=== PATIENT | male | born 1985 | race Caucasian/White ===

== ENCOUNTER 2017-03-16 16:41 | Emergency (ER) | payer OTHER ==
[~2017-03-16] VITALS: Ht 180.3 cm; Wt 79.5 kg
[~2017-03-16 16:41] MED LIST: XANAX 0.5MG0.5 MG PO
[2017-03-16 16:42] VITALS: TEMP 99.5
[2017-03-16] MEDS ORDERED: CELEXA 20MG20 MG/TAB PO (17:11)
[2017-03-16] MEDS ORDERED: COPAXONE 20M20 MG/M1 SQ (17:13)
[2017-03-16 17:40] LABS: BASO # 0.1 (0.0-0.2); BASO % 0.5 % (0.0-2.0); EOS # 0.1 (0.0-0.7); EOS % 1.1 % (0-4.0); GRAN # 7.5 (1.4-6.5); GRAN % 72.1 % (42.2-75.2); HEMATOCRIT 47.4 % (42.0-52.0); HEMOGLOBIN 15.9 g/dl (13.5-18.0); LYMPH # 1.4 (1.2-3.4); MEAN CELL VOLUME 89 fl (80.0-100.0); MEAN CORPUSCULAR HEMOGLOBIN 30 pg (27.0-31.0); MEAN CORPUSCULAR HGB CONC 34 g/dl (33.0-37.0); MEAN PLATELET VOLUME 9.3 fl (7.4-10.4); MONO # 1.3 (0.1-0.6); MONO % 12.1 % (1.7-9.3); PLATELET COUNT 245 K/mm3 (130-400); RED BLOOD COUNT 5.32 M/mm3 (4.20-5.60); REDCELL DISTRIBUTION WIDTH-CV 13.2 % (11.5-14.5); WHITE BLOOD COUNT 10.4 K/mm3 (4.8-10.8)
[2017-03-16] MEDS ORDERED: ATIVAN 0.50.5 MG/TAB PO (17:42)
[2017-03-16 17:53] LABS: ADJUSTED CALCIUM 8.5 mg/dL (8.4-10.2); ALBUMIN 4.6 gm/dL (3.5-5.0); BILIRUBIN,TOTAL 0.5 mg/dL (0.0-1.0); C-REACTIVE PROTEIN 0.6 mg/dL (0.0-0.9); CREATININE, serum 1.06 mg/dL (0.66-1.25); MAGNESIUM 2.2 mg/dL (1.6-2.3); PHOSPHOROUS 4.2 mg/dL (2.5-4.5); POTASSIUM 4.1 mmol/L (3.4-5.0)
[2017-03-16 18:04] LABS: ERYTHROCYTE SEDIMENTATION RATE 2 mm/hr (0-15)
[2017-03-16] MEDS ORDERED: PREDNISONE10 MG PO (18:28)
[2017-03-16 18:55] VITALS: BP 123/84; PULSE 77
== END 2017-03-16 18:57 | disposition home or self-care (01) ==
LOC: COL.ER 16:41
PROVIDERS: Emergency Medicine
DX: G35 Multiple sclerosis (principal)
CPT/HCPCS: J1170; J7030; J7512

== ENCOUNTER → 2017-05-12 | Outpatient (CLI) | payer OTHER ==
[~2017-05-12] MED LIST changes: +ATIVAN 0.50.5 MG/TAB PO; +CELEXA 20MG20 MG/TAB PO; +COPAXONE 20M20 MG/M1 SQ; +PREDNISONE10 MG PO
== END ==
LOC: COL.RAD 08:10
DX: G35 Multiple sclerosis (principal); R39.11 Hesitancy of micturition
CPT/HCPCS: A9585

== ENCOUNTER 2017-11-21 10:15 | Emergency (ER) | payer OTHER ==
[~2017-11-21] VITALS: Ht 180.3 cm; Wt 81.8 kg
[2017-11-21 10:27] VITALS: TEMP 98.7
[2017-11-21] MEDS ORDERED: ACIPHEX20 MG PO (12:08)
[2017-11-21] MEDS ORDERED: ADVIL200 MG PO (12:09)
[2017-11-21 12:12] LABS: BASO # 0.1 (0.0-0.2); BASO % 0.5 % (0.0-2.0); EOS # 0.2 (0.0-0.7); EOS % 1.9 % (0-4.0); GRAN # 6.2 (1.4-6.5); GRAN % 67.9 % (42.2-75.2); HEMATOCRIT 47.2 % (42.0-52.0); HEMOGLOBIN 15.5 g/dl (13.5-18.0); LYMPH # 1.8 (1.2-3.4); LYMPH % 19.7 % (20.0-51.0); MEAN CELL VOLUME 91 fl (80.0-100.0); MEAN CORPUSCULAR HEMOGLOBIN 30 pg (27.0-31.0); MEAN CORPUSCULAR HGB CONC 33 g/dl (33.0-37.0); MEAN PLATELET VOLUME 9.8 fl (7.4-10.4); MONO # 0.8 (0.1-0.6); MONO % 9.1 % (1.7-9.3); PLATELET COUNT 271 K/mm3 (130-400); REDCELL DISTRIBUTION WIDTH-CV 12.7 % (11.5-14.5)
[2017-11-21 12:57] LABS: ALANINE AMINOTRANSFERASE 38 U/L (21-72); ALBUMIN 4.4 gm/dL (3.5-5.0); ALKALINE PHOSPHATASE 55 U/L (50-136); ANION GAP 10 mmol/L (7-16); AST,SGOT 22 U/L (15-37); BILIRUBIN,TOTAL 0.5 mg/dL (0.0-1.0); BLOOD UREA NITROGEN 15 mg/dL (9-20); CALCIUM 8.6 mg/dL (8.4-10.2); CARBON DIOXIDE 26 mmol/L (22-30); CHLORIDE 104 mmol/L (98-107); CREATININE, serum 0.83 mg/dL (0.66-1.25); GLUCOSE 100 mg/dL (74-106); LIPASE 100 U/L (23-300); POTASSIUM 4.1 mmol/L (3.4-5.0); SODIUM 141 mmol/L (137-145); TOTAL PROTEIN 7.2 gm/dL (6.4-8.2)
[2017-11-21 12:59] LABS: C-REACTIVE PROTEIN < 0.5 mg/dL (0.0-0.9)
[2017-11-21 13:07] LABS: COLLECTION METHOD CLEAN CATCH
[2017-11-21 13:13] LABS: PH 7 (5-8); SQUAMOUS EPITHELIAL None Seen /hpf; URINE APPEARANCE Clear; URINE BACTERIA None Seen /hpf; URINE BILIRUBIN Negative (NEGATIVE); URINE BLOOD Negative (NEGATIVE); URINE COLOR Straw; URINE GLUCOSE Negative (NEGATIVE); URINE KETONE Negative (NEGATIVE); URINE LEUKOCYTE ESTERASE Negative (NEGATIVE); URINE NITRATE Negative (NEGATIVE); URINE PROTEIN(semi-quant) Negative (NEGATIVE); URINE RBC None Seen /hpf; URINE UROBILINOGEN Negative (NEGATIVE)
[2017-11-21] MEDS ORDERED: PREDNISONE20 MG PO (14:09)
[2017-11-21 14:14] VITALS: BP 122/91; PULSE 60
== END 2017-11-21 14:19 | disposition home or self-care (01) ==
LOC: COL.ER 10:15
PROVIDERS: Emergency Medicine; Physician Assistant
DX: R10.9 Unspecified abdominal pain (principal); F17.210 Nicotine dependence, cigarettes, uncomplicated; F12.90 Cannabis use, unspecified, uncomplicated
CPT/HCPCS: J7030

== ENCOUNTER 2018-02-28 08:57 | Emergency (ER) | payer OTHER ==
[~2018-02-28] VITALS: Ht 180.3 cm; Wt 86.4 kg
[~2018-02-28 08:57] MED LIST changes: +ACIPHEX20 MG PO; +ADVIL200 MG PO; +PREDNISONE20 MG PO
[2018-02-28 09:03] VITALS: TEMP 98.6
[2018-02-28 09:47] LABS: BASO # 0.1 (0.0-0.2); BASO % 0.4 % (0.0-2.0); EOS # 0.2 (0.0-0.7); EOS % 1.8 % (0-4.0); GRAN # 9.7 (1.4-6.5); GRAN % 80.1 % (42.2-75.2); HEMOGLOBIN 17.3 g/dl (13.5-18.0); LYMPH # 1.1 (1.2-3.4); MEAN CELL VOLUME 88 fl (80.0-100.0); MEAN CORPUSCULAR HEMOGLOBIN 29 pg (27.0-31.0); MEAN CORPUSCULAR HGB CONC 33 g/dl (33.0-37.0); MEAN PLATELET VOLUME 9.2 fl (7.4-10.4); PLATELET COUNT 282 K/mm3 (130-400); RED BLOOD COUNT 5.95 M/mm3 (4.20-5.60); REDCELL DISTRIBUTION WIDTH-CV 13.1 % (11.5-14.5)
[2018-02-28 09:51] LABS: HEMATOCRIT 52.1 % (42.0-52.0)
[2018-02-28 09:53] LABS: INR 0.9 (0.8-3.0); PROTHROMBIN TIME 10.1 SECONDS (9.7-12.8)
[2018-02-28 09:56] LABS: PARTIAL THROMBOPLASTIN TIME 36.2 SECONDS (26.0-37.0)
[2018-02-28 10:01] LABS: ALBUMIN 4.3 gm/dL (3.5-5.0); BILIRUBIN,TOTAL 0.4 mg/dL (0.0-1.0); C-REACTIVE PROTEIN 1.8 mg/dL (0.0-0.9); CALCIUM 9.3 mg/dL (8.4-10.2); CREATININE, serum 0.98 mg/dL (0.66-1.25); POTASSIUM 4.1 mmol/L (3.4-5.0); TOTAL PROTEIN 8.5 gm/dL (6.4-8.2)
[2018-02-28 10:12] LABS: ERYTHROCYTE SEDIMENTATION RATE 1 mm/hr (0-15)
[2018-02-28 10:37] LABS: COLLECTION METHOD CLEAN CATCH
[2018-02-28 10:47] LABS: MUCOUS Present /lpf; PH 5 (5-8); SQUAMOUS EPITHELIAL 0-2 /hpf; URINE APPEARANCE Hazy; URINE BACTERIA None Seen /hpf; URINE BILIRUBIN Negative (NEGATIVE); URINE BLOOD 2+ (NEGATIVE); URINE COLOR Yellow; URINE GLUCOSE Negative (NEGATIVE); URINE KETONE Negative (NEGATIVE); URINE LEUKOCYTE ESTERASE Negative (NEGATIVE); URINE NITRATE Negative (NEGATIVE); URINE PROTEIN(semi-quant) 1+ (NEGATIVE); URINE UROBILINOGEN Negative (NEGATIVE)
[2018-02-28] MEDS ORDERED: ZOFRAN ODT4 MG PO (12:01)
[2018-02-28] MEDS ORDERED: NORCO 325 MG-51 TAB PO (12:01)
[2018-02-28 12:32] VITALS: BP 121/93; PULSE 82
== END 2018-02-28 12:35 | disposition home or self-care (01) ==
LOC: COL.ER 08:57
PROVIDERS: Emergency Medicine
DX: K51.00 Ulcerative (chronic) pancolitis without complications (principal); K92.2 Gastrointestinal hemorrhage, unspecified
CPT/HCPCS: J1170; J2405; J7030; Q9967

== ENCOUNTER → 2018-05-02 | Outpatient (CLI) | payer OTHER ==
[~2018-05-02] MED LIST changes: +NORCO 325 MG-51 TAB PO; +ZOFRAN ODT4 MG PO
[2018-05-02 17:38] LABS: BASO # 0.1 (0.0-0.2); BASO % 0.6 % (0.0-2.0); EOS # 0.2 (0.0-0.7); EOS % 1.8 % (0-4.0); GRAN # 5.5 (1.4-6.5); GRAN % 62.9 % (42.2-75.2); HEMATOCRIT 51.1 % (42.0-52.0); HEMOGLOBIN 16.2 g/dl (13.5-18.0); LYMPH # 2.3 (1.2-3.4); LYMPH % 26.1 % (20.0-51.0); MEAN CELL VOLUME 91 fl (80.0-100.0); MEAN CORPUSCULAR HEMOGLOBIN 29 pg (27.0-31.0); MEAN CORPUSCULAR HGB CONC 32 g/dl (33.0-37.0); MEAN PLATELET VOLUME 9.7 fl (7.4-10.4); MONO # 0.7 (0.1-0.6); MONO % 7.7 % (1.7-9.3); PLATELET COUNT 292 K/mm3 (130-400); RED BLOOD COUNT 5.61 M/mm3 (4.20-5.60); REDCELL DISTRIBUTION WIDTH-CV 13.2 % (11.5-14.5)
[2018-05-02 18:05] LABS: ALBUMIN 4.8 gm/dL (3.5-5.0); BILIRUBIN,TOTAL 0.4 mg/dL (0.0-1.0); CALCIUM 9.3 mg/dL (8.4-10.2); CHOLESTEROL RISK RATIO 3.2; CREATININE, serum 1.03 mg/dL (0.66-1.25); POTASSIUM 3.9 mmol/L (3.4-5.0); TOTAL PROTEIN 8.7 gm/dL (6.4-8.2)
[2018-05-02 18:33] LABS: TSH w REFLEX 1.15 uIU/mL (0.465-4.680)
== END ==
LOC: COL.LAB 16:19
PROVIDERS: Family Medicine
DX: Z13.29 Encounter for screening for other suspected endocrine disorder (principal); Z13.220 Encounter for screening for lipoid disorders; G35 Multiple sclerosis

== ENCOUNTER 2018-07-03 12:07 | Day surgery (SDC) | payer OTHER ==
[~2018-07-03] VITALS: Ht 180.3 cm; Wt 82.3 kg
[2018-07-03 12:31] VITALS: BP 124/89; PULSE 80; TEMP 98.2
[2018-07-03] MEDS ORDERED: LIALDA 1.2 GM1.2 GM PO (12:47)
[2018-07-03] MEDS ORDERED: VANCOCIN H125 MG/CAP PO (12:48)
[2018-07-03] MEDS ORDERED: PREDNISONE10 MG PO (12:48)
[2018-07-03] MEDS ORDERED: CELEXA 20MG20 MG/TAB PO (12:49)
[2018-07-03] MEDS ORDERED: AUBAGIO7 MG PO (12:49)
[2018-07-03 14:10] VITALS: BP 122/84; PULSE 77; TEMP 97.5
[2018-07-03 14:30] VITALS: BP 124/90; PULSE 63
== END 2018-07-03 15:00 | disposition home or self-care (01) ==
LOC: SDCO 12:07
DX: K57.30 Diverticulosis of large intestine without perforation or abscess without bleeding (principal); K64.0 First degree hemorrhoids; K92.1 Melena; K51.911 Ulcerative colitis, unspecified with rectal bleeding; Z87.19 Personal history of other diseases of the digestive system; K21.9 Gastro-esophageal reflux disease without esophagitis; F17.200 Nicotine dependence, unspecified, uncomplicated
CPT/HCPCS: J2704; J7120

== ENCOUNTER 2019-01-18 12:58 | Emergency (ER) | payer OTHER ==
[~2019-01-18] VITALS: Ht 180.3 cm; Wt 84.4 kg
[~2019-01-18 12:58] MED LIST changes: +AUBAGIO7 MG PO; +LIALDA 1.2 GM1.2 GM PO; +VANCOCIN H125 MG/CAP PO
[2019-01-18 13:00] VITALS: BP 123/84; TEMP 98.6
[2019-01-18 14:12] LABS: BASO # 0.1 (0.0-0.2); BASO % 0.6 % (0.0-2.0); EOS # 0.2 (0.0-0.7); EOS % 1.9 % (0-4.0); GRAN # 7.7 (1.4-6.5); GRAN % 68.2 % (42.2-75.2); HEMATOCRIT 45.2 % (42.0-52.0); LYMPH # 2.3 (1.2-3.4); MEAN CELL VOLUME 92 fl (80.0-100.0); MEAN CORPUSCULAR HEMOGLOBIN 30 pg (27.0-31.0); MEAN CORPUSCULAR HGB CONC 33 g/dl (33.0-37.0); MEAN PLATELET VOLUME 9.3 fl (7.4-10.4); MONO % 8.4 % (1.7-9.3); PLATELET COUNT 271 K/mm3 (130-400); RED BLOOD COUNT 4.94 M/mm3 (4.20-5.60); REDCELL DISTRIBUTION WIDTH-CV 13.7 % (11.5-14.5)
[2019-01-18 14:26] LABS: ALANINE AMINOTRANSFERASE 29 U/L (21-72); ALBUMIN 4.1 gm/dL (3.5-5.0); ALKALINE PHOSPHATASE 50 U/L (50-136); ANION GAP 9 mmol/L (7-16); AST,SGOT 28 U/L (15-37); BILIRUBIN,TOTAL 0.4 mg/dL (0.0-1.0); BLOOD UREA NITROGEN 16 mg/dL (9-20); C-REACTIVE PROTEIN < 0.5 mg/dL (0.0-0.9); CALCIUM 8.9 mg/dL (8.4-10.2); CARBON DIOXIDE 25 mmol/L (22-30); CHLORIDE 107 mmol/L (98-107); CREATININE, serum 0.93 (0.66-1.25); GLUCOSE 113 mg/dL (74-106); POTASSIUM 3.8 mmol/L (3.4-5.0); SODIUM 140 mmol/L (137-145); TOTAL PROTEIN 7.2 gm/dL (6.4-8.2)
[2019-01-18] MEDS ORDERED: PREDNISONE20 MG PO (16:30)
[2019-01-18] MEDS ORDERED: ZOFRAN ODT4 MG PO (16:30)
[2019-01-18 16:36] VITALS: PULSE 78
== END 2019-01-18 16:42 | disposition home or self-care (01) ==
LOC: COL.ER 12:58
PROVIDERS: Nurse Practitioner
DX: G35 Multiple sclerosis (principal); F41.9 Anxiety disorder, unspecified; H46.9 Unspecified optic neuritis; F17.210 Nicotine dependence, cigarettes, uncomplicated
CPT/HCPCS: J2930; J7512

== ENCOUNTER → 2019-02-27 | Outpatient (CLI) | payer OTHER | LOC: COL.RAD 13:51 | DX: G35 Multiple sclerosis (principal); H46.9 Unspecified optic neuritis; G37.8 Other specified demyelinating diseases of central nervous system | CPT/HCPCS: A9585 ==

== ENCOUNTER → 2020-05-27 | Outpatient (CLI) | payer OTHER | LOC: COL.RAD 08:05 | DX: G35 Multiple sclerosis (principal); R90.82 White matter disease, unspecified | CPT/HCPCS: A9585 ==

== ENCOUNTER 2020-12-14 13:15 | Emergency (ER) | payer OTHER ==
[~2020-12-14] VITALS: Ht 180.3 cm; Wt 84.1 kg
[2020-12-14 13:32] VITALS: TEMP 98.7
[2020-12-14 14:20] LABS: BASO # 0.1 (0.0-0.2); BASO % 0.5 % (0.0-2.0); EOS # 0.1 (0.0-0.7); GRAN # 6.5 (1.4-6.5); GRAN % 69.4 % (42.2-75.2); HEMATOCRIT 44.5 % (42.0-52.0); HEMOGLOBIN 14.2 g/dl (13.5-18.0); LYMPH # 1.7 (1.2-3.4); LYMPH % 18.5 % (20.0-51.0); MEAN CELL VOLUME 91 fl (80.0-100.0); MEAN CORPUSCULAR HEMOGLOBIN 29 pg (27.0-31.0); MEAN CORPUSCULAR HGB CONC 32 g/dl (33.0-37.0); MEAN PLATELET VOLUME 9.4 fl (7.4-10.4); MONO # 0.9 (0.1-0.6); MONO % 9.8 % (1.7-9.3); PLATELET COUNT 287 K/mm3 (130-400); RED BLOOD COUNT 4.88 M/mm3 (4.20-5.60); REDCELL DISTRIBUTION WIDTH-CV 13.6 % (11.5-14.5)
[2020-12-14 14:32] LABS: ALANINE AMINOTRANSFERASE 25 U/L (4-49); ALKALINE PHOSPHATASE 54 U/L (50-136); ANION GAP 6 mmol/L (7-16); AST,SGOT 25 U/L (15-37); BILIRUBIN,TOTAL < 0.1 mg/dL (0.0-1.0); BLOOD UREA NITROGEN 13 mg/dL (9-20); CALCIUM 8.7 mg/dL (8.4-10.2); CARBON DIOXIDE 26 mmol/L (22-30); CHLORIDE 107 mmol/L (98-107); CREATININE, serum 0.77 (0.66-1.25); GLUCOSE 115 mg/dL (74-106); POTASSIUM 3.6 mmol/L (3.4-5.0); SODIUM 139 mmol/L (137-145)
[2020-12-14] MEDS ORDERED: PREDNISONE10 MG PO (17:07)
[2020-12-14 17:50] VITALS: BP 147/92; PULSE 79
[2020-12-16] MEDS ORDERED: [UNRECOGNIZED DRUG - REMARK] PO (09:46)
[2020-12-16] MEDS ORDERED: TYLENOL 325MG325 MG PO (09:46)
[2020-12-17] MEDS ORDERED: CIALIS5 MG PO (07:51)
== END 2020-12-14 17:51 | disposition home or self-care (01) ==
LOC: COL.ER 13:15
PROVIDERS: Emergency Medicine
DX: G35 Multiple sclerosis (principal); F17.210 Nicotine dependence, cigarettes, uncomplicated; Z20.822 Contact with and (suspected) exposure to COVID-19
CPT/HCPCS: J2930; J7030; J7050

== ENCOUNTER 2020-12-19 07:22 | Outpatient (RCR) | payer OTHER ==
[2020-12-16 09:28] VITALS: BP 123/84; PULSE 69; TEMP 97.8
[2020-12-17 07:56] VITALS: BP 129/90; PULSE 75; TEMP 97.8
[2020-12-18 07:44] VITALS: BP 134/89; PULSE 68; TEMP 98.1
[~2020-12-19] VITALS: Ht 180.3 cm; Wt 85.0 kg
[~2020-12-19 07:22] MED LIST changes: +CIALIS5 MG PO; +TYLENOL 325MG325 MG PO; +[UNRECOGNIZED DRUG - REMARK] PO
[2020-12-19 07:36] VITALS: BP 175/98; PULSE 64; TEMP 98
== END 2020-12-19 08:30 | disposition home or self-care (01) ==
LOC: EUO 07:22
DX: G35 Multiple sclerosis (principal)
CPT/HCPCS: J2930; J7050

== ENCOUNTER → 2021-01-21 | Outpatient (CLI) | payer OTHER | LOC: COL.RAD 09:10 | DX: G35 Multiple sclerosis (principal) ==

== ENCOUNTER 2021-09-16 12:14 | Emergency (ER) | payer OTHER ==
[~2021-09-16] VITALS: Ht 180.3 cm; Wt 87.7 kg
[2021-09-16 12:45] VITALS: TEMP 98
[2021-09-16] MEDS ORDERED: AMOXICILLIN 8751 TAB PO (14:00)
[2021-09-16 14:05] VITALS: BP 133/78; PULSE 81
== END 2021-09-16 14:13 | disposition home or self-care (01) ==
LOC: COL.ER 12:14
DX: J32.9 Chronic sinusitis, unspecified (principal); G35 Multiple sclerosis; F17.200 Nicotine dependence, unspecified, uncomplicated; Z20.822 Contact with and (suspected) exposure to COVID-19; Z79.899 Other long term (current) drug therapy

== ENCOUNTER 2022-06-30 10:12 | Emergency (ER) | payer OTHER ==
[~2022-06-30] VITALS: Ht 180.3 cm; Wt 81.8 kg
[~2022-06-30 10:12] MED LIST changes: +AMOXICILLIN 8751 TAB PO
[2022-06-30 10:44] VITALS: BP 149/83; PULSE 98; TEMP 99.6
[2022-06-30] MEDS ORDERED: AMOXICILLIN875 MG PO (12:55)
[2022-06-30] MEDS ORDERED: PREDNISONE50 MG PO (12:56)
== END 2022-06-30 13:18 | disposition home or self-care (01) ==
LOC: COL.ER 10:12
DX: H66.92 Otitis media, unspecified, left ear (principal); J06.9 Acute upper respiratory infection, unspecified; F17.200 Nicotine dependence, unspecified, uncomplicated; Z20.822 Contact with and (suspected) exposure to COVID-19; Z28.310 Unvaccinated for COVID-19

== ENCOUNTER → 2024-06-18 | Outpatient (CLI) | payer OTHER ==
[~2024-06-18] MED LIST changes: +AMOXICILLIN875 MG PO; +PREDNISONE50 MG PO
== END ==
LOC: COL.RAD 15:23
DX: G35 Multiple sclerosis (principal)